=== PATIENT | male | born 1960 | race Hispanic/Latino ===

== ENCOUNTER 2020-03-14 13:43 | Emergency (ER) | payer SELFPAY ==
[2020-03-14] MEDS ORDERED: MORPHINE 4 MG/ML SYR ONE (14:11)
[2020-03-14] MEDS ORDERED: NA CHLORIDE 0.9% 1,000 ML ONE (14:11)
[2020-03-14] MEDS ORDERED: ONDANSETRON 4 MG/2 ML VIAL ONE (14:11)
[2020-03-14 14:25] LABS: Absolute Lymphocytes (CBC) 1.4 K/uL (0.7-4.9); Basophils % 0.6 % (0-1.3); Lymphocytes % 9.8 % (15.3-44.8); MPV 8.3 fL (7.6-11.3); RBC Red Blood Cell Count 4.88 M/uL (4.33-5.43)
[2020-03-14 14:37] LABS: Albumin 3.8 g/dL (3.4-5.0); Bilirubin Direct 0.1 mg/dL (0-0.2); Bilirubin Total 0.5 mg/dL (0.2-1.0); Potassium 4.1 mmol/L (3.5-5.1)
[2020-03-14 15:18] LABS: Urine Blood 1+ (NEG); Urine Glucose NEGATIVE (NEG); Urine Protein NEGATIVE (NEG); Urine Specific Gravity 1.015 (1.005-1.030); Urine pH 5.5 (5.0-7.0)
[2020-03-14] MEDS ORDERED: FAMOTIDINE 20 MG TAB ONE (15:42)
--- NOTE | 2020-03-14 15:58 | RAD REPORT ---
EXAM DESCRIPTION: CT - Abdomen Pelvis W Contrast - 03/14/2020 3:46 pm CLINICAL HISTORY: Abdominal pain COMPARISON: none. TECHNIQUE: Computed axial tomography of the abdomen pelvis was obtained. 100 cc Isovue-300 was admin istered intravenously. Oral contrast was not requested which limits evaluation of bowel. All CT scans are performed using dose optimization technique as appropriate and may include automated exposure control or mA/KV adjustment according to patient size. FINDINGS: Small hepatic cysts. Spleen, pancreas, and adrenals appear unremarkable. There is no evidence of diverticulitis. Normal appendix 2 millimeter calculus left kidney. Mild bilateral pyelocaliectasis. Portions of ureters are mildly di lated. A ureteral calculus is not seen. A catheter is present within the bladder. The prostate gland is markedly enlarged. IMPRESSION: Marked prostatic enlargement Mild bilateral pyelocaliectasis 2 millimeter nonobstructing left renal calculus
--- NOTE | 2020-03-14 17:02 | EDPHYS ---
Physician Documentation [facility] Name: Elías Rosales Age: 60 yrs Sex: Male : 1960 Arrival Date: 03/14/2020 Time: 13:44 Bed 6 Private MD: ED Physician Ramy Chávez HPI: 03/14 13:50 This 60 yrs old Male presents to ER via EMS with complaints of Abdominal Pain. ma2 13:50 The patient presents with abdominal pain. Onset: The symptoms/episode began/occurred ma2 gradually, 1 day(s) ago. Associated signs and symptoms: Pertinent negatives: anorexia, chest pain, constipation, dysuria. Severity of pain: At its worst the pain was severe incapacitating in the emergency department the pain is unchanged. The patient has not experienced similar symptoms in the past, The patient has experienced a previous episode. Historical: - Allergies: 13:47 No Known Allergies; hb - Home Meds: 13:47 None [Active]; hb - PMHx: 13:47 None; hb - PSHx: 13:47 None; hb - Immunization history:: Adult Immunizations up to date. - Social history:: Smoking status: Patient denies any tobacco usage or history of. Patient/guardian denies using alcohol, street drugs, The patient lives with family. - Family history:: not pertinent. ROS: 13:50 Constitutional: Negative for fever, chills, and weight loss. ma2 13:50 All other systems are negative. Exam: 13:50 Constitutional: This is a well developed, well nourished patient who is awake, alert, ma2 and in no acute distress. ENT: Nares patent. No nasal discharge, no septal abnormalities noted. Tympanic membranes are normal and external auditory canals are clear. Oropharynx with no redness, swelling, or masses, exudates, or evidence of obstruction, uvula midline. Mucous membranes moist. Neck: Trachea midline, no thyromegaly or masses palpated, and no cervical lymphadenopathy. Supple, full range of motion without nuchal rigidity, or vertebral point tenderness. No Meningismus. Chest/axilla: Normal chest wall appearance and motion. Nontender with no deformity. No lesions are appreciated. Cardiovascular: Regular rate and rhythm with a normal S1 and S2. No gallops, murmurs, or rubs. Normal PMI, no JVD. No pulse deficits. Respiratory: Lungs have equal breath sounds bilaterally, clear to auscultation and percussion. No rales, rhonchi or wheezes noted. No increased work of breathing, no retractions or nasal flaring. Abdomen/GI: Soft, midly distended and diffusely -tender, with normal bowel sounds. No distension or tympany. No guarding or rebound. No evidence of tenderness throughout. Vital Signs: 13:46 BP 172 / 89; Pulse 83; Resp 16; Temp 98.3; Pulse Ox 100% ; Weight 90.72 kg; Height 5 hb ft. 7 in. (170.18 cm); Pain 10/10; 13:46 Body Mass Index 31.32 (90.72 kg, 170.18 cm) hb MDM: 13:49 Patient medically screened. ma2 13:50 Differential diagnosis: diverticulitis, gastritis, gastroesophageal reflux disease, ma2 Irritable bowel syndrome. Data reviewed: vital signs, nurses notes. 17:00 Counseling: I had a detailed discussion with the patient and/or guardian regarding: the [facility] historical points, exam findings, and any diagnostic results supporting the discharge/admit diagnosis, the presence of at least one elevated blood pressure reading (>120/80) during this emergency department visit, the need for outpatient follow up. Response to treatment: the patient's symptoms have markedly improved after treatment. 03/14 13:50 Order name: BMP; Complete Time: 14:50 ma2 03/14 13:50 Order name: CBC with Diff; Complete Time: 14:34 ma2 03/14 13:50 Order name: Hepatic Function; Complete Time: 14:50 ma2 03/14 13:50 Order name: Lipase; Complete Time: 14:50 ma2 03/14 14:49 Order name: Urine Dipstick--Ancillary (enter results); Complete Time: 15:48 eb 03/14 15:20 Order name: CREATININE WHOLE BLOOD; Complete Time: 15:48 EDMS 03/14 13:50 Order name: IV Saline Lock; Complete Time: 14:04 ma2 03/14 13:50 Order name: Labs collected and sent; Complete Time: 14:04 ma2 03/14 13:50 Order name: NPO; Complete Time: 14:04 ma2 03/14 13:50 Order name: CT Abd/Pelvis - IV Contrast Only; Complete Time: 16:42 ma2 03/14 14:34 Order name: Urine Dipstick-Ancillary (obtain specimen); Complete Time: 14:[address] [facility] Administered Medications: 14:02 Drug: Zofran (Ondansetron) 4 mg Route: IVP; Site: right antecubital; hb 14:02 Drug: NS 0.9% 1000 ml Route: IV; Rate: 1000 ml; Site: right antecubital; hb 14:02 Drug: morphine 4 mg Route: IVP; Site: right antecubital; hb Disposition: 03/14/20 17:01 Discharged to Home. Impression: Calculus of kidney and ureter. - Condition is Stable. - Discharge Instructions: Dietary Guidelines to Help Prevent Kidney Stones. - Prescriptions for Flomax 0.4 mg Oral Capsule, Sust. Release 24 hr - take 1 capsule by ORAL route once daily 1/2 hour following the same meal each day; 30 capsule. Diclofenac Sodium 75 mg Oral Tablet Sustained Release - take 1 tablet by ORAL route 2 times per day; 30 tablet. - Medication Reconciliation Form, Thank You Letter, Antibiotic Education, Prescription Opioid Use form. - Follow up: Private Physician; When: Tomorrow; Reason: Continuance of care. Follow up: Lucía Pérez MD; When: Tomorrow; Reason: Continuance of care. Signatures: Dispatcher [employer] EDPura Eagle RN RN hb Alzahri, Mohammad, MD MD [facility] Corrections: (The following items were deleted from the chart) 17:03 17:01 03/14/2020 17:01 Discharged to Home. Impression: Calculus of kidney and ureter. ma Condition is Stable. Forms are Medication Reconciliation Form, Thank You Letter, Antibiotic Education, Prescription Opioid Use. Follow up: Private Physician; When: Tomorrow; Reason: Continuance of care. ma2 18:00 17:03 03/14/2020 17:01 Discharged to Home. Impression: Calculus of kidney and ureter. Condition is Stable. Discharge Instructions: Dietary Guidelines to Help Prevent Kidney Stones. Prescriptions for Flomax 0.4 mg Oral Capsule, Sust. Release 24 hr - take 1 capsule by ORAL route once daily 1/2 hour following the same meal each day; 30 capsule, Diclofenac Sodium 75 mg Oral Tablet Sustained Release - take 1 tablet by ORAL route 2 times per day; 30 tablet. and Forms are Medication Reconciliation Form, Thank You Letter, Antibiotic Education, Prescription Opioid Use. Follow up: Private Physician; When: Tomorrow; Reason: Continuance of care. Follow up: Lucía Pérez; When: Tomorrow; Reason: Continuance of care. ma2
--- NOTE | 2020-03-14 17:02 | ER ---
Nurse's Notes [facility] Name: Elías Rosales Age: 60 yrs Sex: Male : 1960 Arrival Date: 03/14/2020 Time: 13:44 Bed 6 Private MD: Diagnosis: Calculus of kidney and ureter Presentation: 03/14 13:46 Chief complaint: EMS states: Difficulty with urination and lower abdominal pain 04/24. hb Coronavirus screen: At this time, the client does not indicate any symptoms associated with coronavirus-19. Ebola Screen: No symptoms or risks identified at this time. Initial Sepsis Screen: Does the patient meet any 2 criteria? No. Patient's initial sepsis screen is negative. Does the patient have a suspected source of infection? No. Patient's initial sepsis screen is negative. Risk Assessment: Do you want to hurt yourself or someone else? Patient reports no desire to harm self or others. Onset of symptoms was March 14, 2020. 13:46 Method Of Arrival: EMS: [facility] 13:46 Acuity: SUSAN 3 hb Historical: - Allergies: 13:47 No Known Allergies; hb - Home Meds: 13:47 None [Active]; hb - PMHx: 13:47 None; hb - PSHx: 13:47 None; hb - Immunization history:: Adult Immunizations up to date. - Social history:: Smoking status: Patient denies any tobacco usage or history of. Patient/guardian denies using alcohol, street drugs, The patient lives with family. - Family history:: not pertinent. Screenin:27 Abuse screen: Denies threats or abuse. Denies injuries from another. Nutritional hb screening: No deficits noted. Tuberculosis screening: No symptoms or risk factors identified. Fall Risk None identified. Assessment: 14:00 General: Appears in no apparent distress. Behavior is cooperative, agitated, anxious, hb crying. Pain: Pain currently is 10 out of 10 on a pain scale. Neuro: Level of Consciousness is awake, alert, obeys commands, Oriented to person, place, time, situation. Cardiovascular: Capillary refill < 3 seconds Patient's skin is warm and dry. Respiratory: Respiratory effort is even, unlabored, Respiratory pattern is regular, symmetrical. GI: Abdomen is round Reports lower abdominal pain. : Reports difficulty urinating. EENT: No signs and/or symptoms were reported regarding the EENT system. Derm: Skin is pink, warm \T\ dry. Musculoskeletal: No signs and/or symptoms reported regarding the musculoskeletal system. 15:00 Reassessment: Patient appears in no apparent distress at this time. Patient and/or hb family updated on plan of care and expected duration. Pain level reassessed. Patient is alert, oriented x 3, equal unlabored respirations, skin warm/dry/pink. 16:00 Reassessment: Patient appears in no apparent distress at this time. Patient and/or hb family updated on plan of care and expected duration. Pain level reassessed. Patient is alert, oriented x 3, equal unlabored respirations, skin warm/dry/pink. Vital Signs: 13:46 BP 172 / 89; Pulse 83; Resp 16; Temp 98.3; Pulse Ox 100% ; Weight 90.72 kg; Height 5 hb ft. 7 in. (170.18 cm); Pain 10/10; 13:46 Body Mass Index 31.32 (90.72 kg, 170.18 cm) hb ED Course: 13:44 Patient arrived in ED. hb 13:46 Triage completed. hb 13:47 Arm band placed on. hb 13:47 Bladder scan completed. 424mL. dh3 13:49 Ramy Chávez MD is Attending Physician. ma2 13:57 Missed attempt(s): 20 gauge in right forearm. Bleeding controlled, band aid applied, dh3 catheter tip intact. 13:58 Pura Barnes, RN is Primary Nurse. hb 14:00 Patient has correct armband on for positive identification. Bed in low position. Call light in reach. Side rails up X 1. 14:01 Initial lab(s) drawn, by fl, sent to lab. Inserted saline lock: 20 gauge in right dh3 antecubital area, using aseptic technique. Blood collected. 14:25 Coud inserted, using sterile technique, 16 Fr. Returned clear yellow urine. To gravity dh3 drainage. Clamped. 1300mL returned. 15:47 CT Abd/Pelvis - IV Contrast Only In Process Unspecified. EDMS 17:02 Lucía Pérez MD is Referral Physician. ma2 17:50 No provider procedures requiring assistance completed. IV discontinued, intact, hb bleeding controlled, No redness/swelling at site. Pressure dressing applied. 17:50 [place]a cath removed intact, balloon deflated. hb Administered Medications: 14:02 Drug: Zofran (Ondansetron) 4 mg Route: IVP; Site: right antecubital; hb 14:02 Drug: NS 0.9% 1000 ml Route: IV; Rate: 1000 ml; Site: right antecubital; hb 14:02 Drug: morphine 4 mg Route: IVP; Site: right antecubital; hb Intake: 14:25 PO: 0ml; Total: 0ml. hb Output: 14:25 Urine: 1300ml (Bahena); Total: 1300ml. hb 16:00 Urine: 1200ml (Bahena); Total: 2500ml. dh3 18:04 Urine: 3250ml (Bahena); Total: 5750ml. hb Outcome: 17:01 Discharge ordered by MD. donato 17:50 Discharged to home ambulatory. hb 17:50 Condition: stable 17:50 Discharge instructions given to patient, Instructed on discharge instructions, follow up and referral plans. medication usage, Demonstrated understanding of instructions, follow-up care, medications, Prescriptions given X 2. 18:00 Patient left the ED. hb Signatures: Dispatcher [employer] EDMS Pura Barnes RN RN hb Herrera, Deanna 3 Ramy Chávez MD MD ma2
[2020-03-17 20:17] VITALS: BP 172/89; TEMP 98.3; O2SAT 100
== END 2020-03-14 18:00 | disposition home or self-care (01) ==
LOC: ER 13:43
DX: N20.2 Calculus of kidney with calculus of ureter (principal)
CPT/HCPCS: 36415; 74177; 80048; 80076; 81003; 82565; 83690; 85025; 96374; 96375; 99284; J2405; J7030; Q9967

== ENCOUNTER 2020-03-15 12:28 | Emergency (ER) | payer SELFPAY ==
[2020-03-15 12:51] LABS: Absolute Lymphocytes (CBC) 1.3 K/uL (0.7-4.9); Basophils % 0.4 % (0-1.3); Hematocrit 44.3 % (39.6-49.0); Lymphocytes % 14.6 % (15.3-44.8); MPV 8.1 fL (7.6-11.3); RBC Red Blood Cell Count 4.98 M/uL (4.33-5.43)
[2020-03-15] MEDS ORDERED: MEPERIDINE HCL 50 MG/ML ONE (12:55)
[2020-03-15 13:05] LABS: Potassium 3.9 mmol/L (3.5-5.1)
[2020-03-15 13:15] LABS: Urine Blood TRACE (NEG); Urine Glucose NEGATIVE (NEG); Urine Protein NEGATIVE (NEG); Urine pH 5.5 (5.0-7.0)
[2020-03-15 13:22] LABS: Urine Amorphous Sediment 1+ /HPF (NONE SEEN); Urine Bacteria <20 /HPF (NONE SEEN); Urine Culture Reflex Order NOT NEEDED; Urine Mucus 1+ /HPF (NONE SEEN)
--- NOTE | 2020-03-15 13:44 | EDPHYS ---
Physician Documentation [facility] Name: Elías Rosales Age: 60 yrs Sex: Male : 1960 Arrival Date: 03/15/2020 Time: 12:27 Bed 4 Private MD: ED Physician Jack Subramanian HPI: 03/15 12:30 This 60 yrs old Male presents to ER via Unassigned with complaints of rn Inability To Void. 12:30 The patient presents with urinary symptoms, retention, unable to void. Onset: The rn symptoms/episode began/occurred today. Modifying factors: The symptoms are alleviated by nothing, the symptoms are aggravated by nothing. Severity of symptoms: At their worst the symptoms were moderate, in the emergency department the symptoms are unchanged. The patient has not experienced similar symptoms in the past. The patient has been recently seen at the [facility] Emergency Department, yesterday. Reports seen here yesterday, "given medicine", worse today, unable to void. . Historical: - Allergies: 12:33 No Known Allergies; ca1 - Home Meds: 12:33 None [Active]; ca1 - PMHx: 12:33 None; ca1 - PSHx: 12:33 None; ca1 - Immunization history:: Adult Immunizations up to date. - Social history:: Smoking status: Patient denies any tobacco usage or history of. - Family history:: not pertinent. - Hospitalizations: : No recent hospitalization is reported. ROS: 12:30 Constitutional: Negative for fever, chills, and weight loss, Cardiovascular: Negative rn for chest pain, palpitations, and edema, Respiratory: Negative for shortness of breath, cough, wheezing, and pleuritic chest pain, Abdomen/GI: Negative for vomiting, diarrhea, and constipation, Back: + low back pain : + inability to void MS/Extremity: Negative for injury and deformity, Skin: Negative for injury, rash, and discoloration, Neuro: Negative for headache, weakness, numbness, tingling, and seizure. Exam: 12:30 Constitutional: This is a well developed, well nourished patient who is awake, alert, rn + appears uncomfortable Head/Face: Normocephalic, atraumatic. Cardiovascular: Regular rate and rhythm. No pulse deficits. Respiratory: No increased work of breathing, no retractions or nasal flaring. Abdomen/GI: soft, + suprapubic tenderness Skin: Warm, dry with normal turgor. Normal color with no rashes, no lesions, and no evidence of cellulitis. MS/ Extremity: Pulses equal, no cyanosis. Neuro: Awake and alert, GCS 15 Vital Signs: 12:27 BP 173 / 96; Pulse 68; Resp 17 S; Temp 97.4; Pulse Ox 99% on R/A; Weight 99.79 kg (R); ca1 Height 5 ft. 8 in. (172.72 cm) (R); Pain 10/10; 13:55 BP 130 / 75; Pulse 74; Resp 20 S; Pulse Ox 99% on R/A; ca1 14:18 BP 121 / 77; Pulse 71; Resp 16 S; Pulse Ox 100% on R/A; ca1 12:27 Body Mass Index 33.45 (99.79 kg, 172.72 cm) ca1 MDM: 12:27 Patient medically screened. rn 13:42 Differential diagnosis: urinary retention, prostatitis. Data reviewed: vital signs, rn nurses notes, lab test result(s), and as a result, I will discharge patient. Counseling: I had a detailed discussion with the patient and/or guardian regarding: the historical points, exam findings, and any diagnostic results supporting the discharge/admit diagnosis, lab results, radiology results, the need for outpatient follow up, to return to the emergency department if symptoms worsen or persist or if there are any questions or concerns that arise at home. Response to treatment: the patient's symptoms have markedly improved after treatment, and as a result, I will discharge patient. Special discussion: I discussed with the patient/guardian in detail that at this point there is no indication for admission to the hospital. It is understood, however, that if the symptoms persist or worsen the patient needs to return immediately for re-evaluation. Based on the history and exam findings, there is no indication for further emergent testing or inpatient evaluation. I discussed with the patient/guardian the need to see the urologist for further evaluation of the symptoms. ED course: Pt markedly improved, mitchell placed with 1000cc out, pain free now, will dc home as prostate hypertrophy causing urinary retention, with leg bag, and urology f/u, has prescription for flomax. . 03/15 12:29 Order name: CBC with Diff; Complete Time: 13:24 rn 03/15 12:29 Order name: Basic Metabolic Panel; Complete Time: 13:24 rn 03/15 12:29 Order name: Urine Culture rn 03/15 12:29 Order name: Urine Microscopic Only; Complete Time: 13:24 rn 03/15 12:57 Order name: Urine Dipstick--Ancillary (enter results); Complete Time: 13:24 bd 03/15 12:29 Order name: IV Start; Complete Time: 12:44 rn 03/15 12:29 Order name: Urine Dipstick-Ancillary (obtain specimen); Complete Time: 12:44 rn 03/15 12:29 Order name: Bladder Scanner; Complete Time: 12:36 rn Administered Medications: 12:46 Drug: Demerol 50 mg {Note: Rass 1.} Route: IVP; Site: right wrist; ca1 13:30 Follow up: Response: No adverse reaction; Pain is decreased; RASS: Alert and Calm (0) ca1 Disposition: 03/15/20 13:43 Discharged to Home. Impression: Retention of urine, unspecified. - Condition is Stable. - Discharge Instructions: Mitchell Catheter Care, Adult, Acute Urinary Retention, Male. - Prescriptions for Cipro 500 mg Oral Tablet - take 1 tablet by ORAL route every 12 hours for 10 days; 20 tablet. - Medication Reconciliation Form, Thank You Letter, Antibiotic Education, Prescription Opioid Use form. - Follow up: René Warren MD; When: 1 week; Reason: Recheck today's complaints, Re-evaluation by your physician. - Problem is new. - Symptoms have improved. Signatures: Dispatcher [employer] EDMS Jack Subramanian MD MD rn Acob, JULI Quinones RN ca1 Corrections: (The following items were deleted from the chart) 14:39 13:43 03/15/2020 13:43 Discharged to Home. Impression: Retention of urine, unspecified. ca1 Condition is Stable. Forms are Medication Reconciliation Form, Thank You Letter, Antibiotic Education, Prescription Opioid Use. Follow up: René Warren; When: 1 week; Reason: Recheck today's complaints, Re-evaluation by your physician. Problem is new. Symptoms have improved. rn
--- NOTE | 2020-03-15 13:44 | ER ---
Nurse's Notes [facility] Name: Elías Rosales Age: 60 yrs Sex: Male : 1960 Arrival Date: 03/15/2020 Time: 12:27 Bed 4 Private MD: Diagnosis: Retention of urine, unspecified Presentation: 03/15 12:27 Chief complaint: EMS states: Pt was here yesterday for kidney stones, d/c with pain ca1 meds. Reports lower back pain and inability to void since 0400 today. VS 165/95, HR 90, RR 18. Coronavirus screen: Client denies travel out of the [place] in the last 14 days. At this time, the client does not indicate any symptoms associated with coronavirus-19. Ebola Screen: Patient negative for fever greater than or equal to 101.5 degrees Fahrenheit, and additional compatible Ebola Virus Disease symptoms Patient denies exposure to infectious person. Patient denies travel to an Ebola-affected area in the 21 days before illness onset. No symptoms or risks identified at this time. Initial Sepsis Screen: Does the patient meet any 2 criteria? No. Patient's initial sepsis screen is negative. Does the patient have a suspected source of infection? No. Patient's initial sepsis screen is negative. Risk Assessment: Do you want to hurt yourself or someone else? Patient reports no desire to harm self or others. Onset of symptoms was March 15, 2020 at 04:00. 12:27 Method Of Arrival: EMS: [facility] ca1 12:27 Acuity: SUSAN 2 ca1 Triage Assessment: 12:33 General: Appears in no apparent distress. uncomfortable, Behavior is cooperative, ca1 appropriate for age, fussy. Pain: Complains of pain in low back area Pain currently is 10 out of 10 on a pain scale. Pain began at 0400 today Is continuous. EENT: No signs and/or symptoms were reported regarding the EENT system. Neuro: Level of Consciousness is awake, alert, obeys commands, Oriented to person, place, time, situation. Cardiovascular: Heart tones S1 S2 present Capillary refill < 3 seconds Patient's skin is warm and dry. Respiratory: Airway is patent Respiratory effort is even, unlabored, Respiratory pattern is regular, symmetrical, Breath sounds are clear bilaterally. GI: Abdomen is round non-distended, Bowel sounds present X 4 quads. Abd is soft X 4 quads Abdomen is tender to palpation in suprapubic area, right lower quadrant and left lower quadrant. : Urine is clear, Reports inability to void, since 0400 today. Derm: Skin is intact, is healthy with good turgor, Skin is pink, warm \T\ dry. Musculoskeletal: Circulation, motion, and sensation intact. Capillary refill < 3 seconds. Historical: - Allergies: 12:33 No Known Allergies; ca1 - Home Meds: 12:33 None [Active]; ca1 - PMHx: 12:33 None; ca1 - PSHx: 12:33 None; ca1 - Immunization history:: Adult Immunizations up to date. - Social history:: Smoking status: Patient denies any tobacco usage or history of. - Family history:: not pertinent. - Hospitalizations: : No recent hospitalization is reported. Screenin:35 Abuse screen: Denies threats or abuse. Denies injuries from another. Nutritional ca1 screening: No deficits noted. Tuberculosis screening: No symptoms or risk factors identified. Fall Risk IV access (20 points). Assessment: 12:35 Reassessment: See triage notes. ca1 12:36 Reassessment: Bladder scanned, 999+ ml. Notified provider. ca1 13:55 Reassessment: Patient appears in no apparent distress at this time. Patient and/or ca1 family updated on plan of care and expected duration. Pain level reassessed. Patient is alert, oriented x 3, equal unlabored respirations, skin warm/dry/pink. Patient states feeling better. Patient states symptoms have improved. 14:19 Reassessment: Pt will be sent home with Josef, per Dr. Subramanian. ca1 Vital Signs: 12:27 BP 173 / 96; Pulse 68; Resp 17 S; Temp 97.4; Pulse Ox 99% on R/A; Weight 99.79 kg (R); ca1 Height 5 ft. 8 in. (172.72 cm) (R); Pain 10/10; 13:55 BP 130 / 75; Pulse 74; Resp 20 S; Pulse Ox 99% on R/A; ca1 14:18 BP 121 / 77; Pulse 71; Resp 16 S; Pulse Ox 100% on R/A; ca1 12:27 Body Mass Index 33.45 (99.79 kg, 172.72 cm) ca1 ED Course: 12:27 Patient arrived in ED. ca1 12:27 Jack Subramanian MD is Attending Physician. rn 12:30 Bladder scan completed. 999+. jl7 12:32 Triage completed. ca1 12:33 Arm band placed on right wrist. ca1 12:35 Patient has correct armband on for positive identification. Placed in gown. Bed in low ca1 position. Call light in reach. Side rails up X2. quality assurance monitor chassis on. Pulse ox on. NIBP on. Warm blanket given. 12:35 Bahena cath inserted, using sterile technique, 16 Fr., by ED staff, balloon inflated, to ca1 gravity drainage, urine specimen collected. returned clear yellow urine. Patient tolerated well. 12:36 Stacie Leija RN is Primary Nurse. ca1 12:44 Initial lab(s) drawn, by ED staff, sent to lab. Inserted saline lock: 20 gauge in right ca1 wrist, using aseptic technique. ,using aseptic technique. by JULI Vences Blood collected. 13:43 René Warren MD is Referral Physician. rn 14:19 No provider procedures requiring assistance completed. ca1 14:36 IV discontinued, intact, bleeding controlled, No redness/swelling at site. Pressure ca1 dressing applied. Administered Medications: 12:46 Drug: Demerol 50 mg {Note: Rass 1.} Route: IVP; Site: right wrist; ca1 13:30 Follow up: Response: No adverse reaction; Pain is decreased; RASS: Alert and Calm (0) ca1 Output: 14:18 Urine: 1200ml (Bahena); Total: 1200ml. ca1 Outcome: 13:43 Discharge ordered by . rn 14:36 Discharged to home ambulatory. ca1 14:36 Condition: stable 14:36 Discharge instructions given to patient, Instructed on discharge instructions, follow up and referral plans. medication usage, catheter care Demonstrated understanding of instructions, follow-up care, medications, Prescriptions given X 1. 14:39 Patient left the ED. ca1 Signatures: Jack Subramanian MD MD rn Leal, Jahala, RN RN jl7 Stacie Leija RN RN ca1
[2020-03-18 09:01] VITALS: BP 121/77; O2SAT 100
== END 2020-03-15 14:39 | disposition home or self-care (01) ==
LOC: ER 12:28
DX: R33.9 Retention of urine, unspecified (principal)
CPT/HCPCS: 36415; 51702; 80048; 81003; 81015; 85025; 87086; 87088; 96374; 99285; J2175